=== PATIENT | male | born 2000 | race Caucasian/White ===

== ENCOUNTER 2022-01-26 15:25 | Outpatient (CLI) | payer OTHER ==
[2022-01-26 15:39] LABS: BASOPHILS # (AUTO) 0.1 10^3/uL (0.0-0.1); BASOPHILS % (AUTO) 0.7 %; EOSINOPHILS # (AUTO) 0.4 10^3/uL (0.0-0.7); HCT - HEMATOCRIT 46.6 % (42.0-52.0); HGB - HEMOGLOBIN 15.3 g/dL (14.0-18.0); LYMPHOCYTES # (AUTO) 2.8 10^3/uL (1.5-3.5); LYMPHOCYTES % (AUTO) 40.7 %; MEAN CORPUSCULAR HEMOGLOBIN 29.4 pg (27.0-31.0); MEAN CORPUSCULAR HGB CONC 32.8 g/dL (32.0-36.0); MEAN CORPUSCULAR VOLUME 89.6 fL (80.0-94.0); MEAN PLATELET VOLUME 9.9 fL (7.4-11.4); MONOCYTES # (AUTO) 0.6 10^3/uL (0.0-1.0); MONOCYTES % (AUTO) 8.2 %; NEUTROPHILS # (AUTO) 3.2 10^3/uL (1.5-6.6); NEUTROPHILS % (AUTO) 45.3 %; PLT - PLATELET COUNT 275 10^3/uL (130-450); RED CELL DISTRIBUTION WIDTH 11.5 % (12.0-15.0)
[2022-01-26 16:12] LABS: ALBUMIN 4.7 g/dL (3.2-5.5); ALBUMIN/GLOBULIN RATIO 1.3 (1.0-2.2); BILIRUBIN,TOTAL 0.4 mg/dL (0.2-1.0); CALCIUM 9.9 mg/dL (8.5-10.3); POTASSIUM 4.4 mmol/L (3.5-5.0); TOTAL PROTEIN 8.2 g/dL (6.7-8.2)
== END 2022-01-26 15:26 | disposition home or self-care (01) ==
LOC: LAB 15:25
PROVIDERS: ATTEND Physician Assistant
DX: K92.1 Melena (principal)
CPT/HCPCS: 36415; 80053; 85025

== ENCOUNTER 2022-03-20 13:42 | Outpatient (CLI) | payer OTHER ==
--- NOTE | 2022-03-22 09:22 | MRI Report ---
PROCEDURE: NECK SOFT TISSUE W/WO INDICATIONS: SWELLING MASS OR LUMP CONTRAST: 9.1 TECHNIQUE: Sagittal/axial/coronal T1 spin echo and STIR. After the administration of contrast, axial/coronal/sa gittal T1 fast spin echo with fat saturation through the neck. COMPARISON: None. FINDINGS: Mild left cervical suprahyoid lymphadenopathy. Left jugulodigastric lymph node measures up to 1.4 cm short axis diameter (series 11 image 23 and series 6 image 23). A marker was placed on the skin surface at the patient's reported palpable area of concern on series 11 image 20. Subjacent to this marker within the left brooch maker novelty space along the buccal margin of the left mandible, there is an asymmetric focus of enhancement and elevated T2 signal measuring 4 mm (se lamine 5 image 20 and series 11 image 19). Parotid and submandibular glands are normal. Thyroid unremarkable. Normal cervical spine vertebral body height and alignment. Normal marrow signal intensity. Normal appearance of the cervical cord. Vascular flow voids maintained. IMPRESSION: Nonspecific focus of enhancement and elevated T2 signal measuring 4 mm along the buccal margin of the left mandible. This is nonspecific. Differential considerations include a small minor salivary gland tumor or potentially infectious or granulomatous change in the setting of associated carious disease . Mild associated left suprahyoid cervical lymph adenopathy is presumably related. Recommend contrast -enhanced CT of the neck for further evaluation. Reviewed by: Juan Tavarez MD on 03/22/2022 9:21 AM PST Approved by: Juan Tavarez MD on 03/22/2022 9:21 AM PST Station ID: [id number]
== END 2022-03-20 13:43 | disposition home or self-care (01) ==
LOC: DI 13:42
DX: R22.0 Localized swelling, mass and lump, head (principal)
CPT/HCPCS: 70543; A9585

== ENCOUNTER 2023-07-10 13:35 | Emergency (ER) | payer OTHER ==
[2023-07-10 13:47] VITALS: BP 127/65; O2SAT 99
--- NOTE | 2023-07-10 14:42 | ED Physician Documentation ---
PD HPI OPHTHO - Stated complaint Stated Complaint: LT EYE IRRITATION - Chief complaint Chief Complaint: Heent - History obtained from History obtained from: Patient - History of Present Illness Timing - onset: How many days ago (3) Timing - duration: Days (3) Timing - details: Gradual onset, Still present (has worsened more the past day) Location: Left. No: Both Associated symptoms: Redness, Swelling, Tearing, Photophobia (mild today). No: FB sensation, Loss of vision Contributing factors: Other (he was working on car engine the day prior to onset of irritation. But not aware of FB or chemical exposure. Has stayed red and tearing despite cleansing drops.). No: Recent URI, FB, Wears contacts Similar symptoms before: Has not had sx before Review of Systems Eyes: reports: Irritation. denies: Loss of vision Nose: denies: Rhinorrhea / runny nose, Congestion, Sinus pressure / pain Throat: denies: Sore throat Respiratory: denies: Cough PD PAST MEDICAL HISTORY - Past Medical History Past Medical History: Yes GI: Cholelithiasis - Past Surgical History Past Surgical History: No - Present Medications Home Medications: Ambulatory Orders Medication Instructions Recorded Confirmed Ketotifen Fumarate [[place]away] 2 drops LEFTEYE QID 5 Days #10 ml 07/10/23 Polymyxin B/Trimeth Ophth Drop 3 drops LEFTEYE QID 5 Days #1 each 07/10/23 [Polytrim Ophth Drops] - Allergies Allergies/Adverse Reactions: Allergies Allergy/AdvReac Type Severity Reaction Status Date / Time No Known Drug Allergies Allergy Verified 07/10/23 13:40 - Social History Does the pt smoke?: No Smoking Status: Never smoker Does the pt drink ETOH?: No Does the pt have substance abuse?: No - Immunizations Immunizations are current?: Yes - POLST Patient has POLST: No PD ED PE NORMAL - Vitals Vital signs reviewed: Yes - General General: Alert and oriented X 3, No acute distress, Well developed/nourished - HEENT HEENT: PERRL, EOMI, Other (left eye with redness of conjuntiva, tearing with s ome matting but not purulent per se. No FB. No noted light sensitivity. Anterior and posterior chambers appear fine. ) Results - Vitals Vitals: Vital Signs - 24 hr 07/10/23 13:40 Temperature 36.8 C Heart Rate 73 Respiratory 16 Rate Blood Pressure 127/65 O2 Saturation 99 Oxygen O2 Source Room air PD Medical Decision Making - ED course Complexity details: considered differential (no URI symptoms, no FB, only single eye involved and worsening. ), d/w patient Departure - Departure Disposition: 01 Home, Self Care Clinical Impression: Conjunctivitis Qualifiers: Conjunctivitis type: acute Acute conjunctivitis type: bacterial Laterality: left Qualified Code(s): H10.32 - Unspecified acute conjunctivitis, left eye Condition: Stable Record reviewed to determine appropriate education?: Yes Instructions: ED Conjunctivitis Nonspecific Follow-Up: HEMANT TAYLOR DO [Primary Care Provider] - Prescriptions: Ketotifen Fumarate [Alaway] 2 drops LEFTEYE QID 5 Days #10 ml Polymyxin B/Trimeth Ophth Drop [Polytrim Ophth Drops] 3 drops LEFTEYE QID 5 Days #1 each Comments: There is thick. Be a persistent allergy or topical irritation causing inflammation of the eye. However the duration is longer than he expected and with it worsening now, consideration would be for an infection brewing. I would use a combination of ketotifen antihistamine eyedrop and Polytrim antibiotic eyedrops 4 times daily for the next 3 to 5 days until this is fully better. You can continue with the oral antihistamine as well. Recheck if not improving well over the next few days and resolved by 3 days or so. I sent your prescriptions to the [facility] pharmacy. Forms: PCP List Discharge Date/Time: 07/10/23 14:46
== END 2023-07-10 14:46 | disposition home or self-care (01) ==
LOC: ED 13:35
DX: H10.32 Unspecified acute conjunctivitis, left eye (principal)
CPT/HCPCS: 99282; 99283

== ENCOUNTER 2023-09-15 09:10 | Outpatient (CLI) | payer OTHER | END 2023-09-15 09:11 | disposition home or self-care (01) | LOC: LAB 09:10 | PROVIDERS: ATTEND Physician Assistant | DX: K51.011 Ulcerative (chronic) pancolitis with rectal bleeding (principal) | CPT/HCPCS: 36415; 81599; 86704 ==